=== PATIENT | female | born 1995 | race Hispanic/Latino ===

== ENCOUNTER 2020-01-04 15:40 | Emergency (ER) | payer OTHER, SELFPAY ==
--- NOTE | ~2020-01-04 | US_ITS ---
EXAMINATION: US OB <= 14 weeks fetus DATE: 01/04/2020 16:47 INDICATION: Vaginal bleeding TECHNIQUE: Real-time pelvic ultrasound utilizing both a transvaginal and transabdominal probe was pe rformed. The interpreting radiologist was not present for the study. COMPARISON: 8.9 x 3.6 x 4.7 FINDINGS: The uterus measures 8.9 x 3.6 x 4.7 cm. Endometrial complex measures5 mm in thickness.No intrauterin e gestational sac or fluid. The right ovary measures 3.6 x 2.0 x 2.0 cm. The left ovary measures 3.6 x 2.4 x 1.9 cm. Multiple sub centimeter anechoic cysts/follicles at the periphery of both ovaries which raises possibility of poly cystic ovarian disease. Both arterial and venous waveforms are seen on color Doppler in both ovaries. No abnormal masses identified. There is no free fluid in the pelvis. IMPRESSION: 1. No intrauterine gestational sac or fluid. The setting of a positive beta hCG the differential woul d include early , failed or ectopic . 2. Multiple subcentimeter cysts/follicles at the periphery of both ovaries which could be seen with p olycystic ovarian disease. Reviewed, dictated and finalized at location B. IMPRESSION: 1. No intrauterine gestational sac or fluid. The setting of a positive beta hCG the differential would include early , failed or ectopic pr egnancy. 2. Multiple subcentimeter cysts/follicles at the periphery of both ovaries whic h could be seen with polycystic ovarian disease.
[2020-01-04 16:00] VITALS: BP 119/75; PULSE 69; RESP 18; TEMP 37; O2SAT 100
--- NOTE | 2020-01-04 16:43 | ED.ABDPAIN ---
HPI - Abdominal Pain General Chief Complaint: Vaginal Bleeding Stated Complaint: vb/ Time Seen by Provider: 01/04/20 16:04 Source: patient Mode of arrival: ambulatory Limitations: no limitations History of Present Illness HPI narrative: 24 years old white female complaining of continuation of her menstrual cycle for the last 2 weeks, gradually slowing down. Patient checked her test today and was positive twice. Patient is wondering if she had miscarriage or not. Patient is 0, para 0, 0. Patient denied any smoking, drinking or using drugs. Last menstrual. November 23, 2019. Patient reports slight lower abdominal discomfort like menstrual cramps. Related Data Home Medications Medication Instructions Recorded Confirmed metformin 500 mg PO BID 01/04/20 01/04/20 Allergies Allergy/AdvReac Type Severity Reaction Status Date / Time No Known Allergies Allergy Verified 01/04/20 16:03 Review of Systems Review of Systems: Narrative: CONSTITUTIONAL: Denies fever, chills, or sweats. EYES: Denies visual changes, redness, or discharge. ENT: Denies rhinorrhea, congestion, sore throat, or otalgia. CARDIOVASCULAR: Denies chest pain, palpitations, or edema. RESPIRATORY: Denies cough or dyspnea. GASTROINTESTINAL: Denies abdominal pain, nausea, vomiting, or diarrhea. GENITOURINARY: Denies dysuria or hematuria. SKIN: Denies rash or itching. MUSCULOSKELETAL: Denies back pain, joint pain, or myalgia. NEUROLOGIC: Denies headache, numbness, or weakness. PSYCHIATRIC: Denies anxiety or depression. [facility]LY [facility] Social History Social History (Updated 01/04/20 @ 16:46 by Tito Saenz MD) Second hand tobacco smoke exposure: No Alcohol intake: never Substance use: never Gender identity (if verbalized by the patient): Female Exam Narrative: Exam Narrative: General appearance: Well-developed, well-nourished Skin: Normal color Head: Normocephalic, nontraumatic Eyes: Clear conjunctiva ENT: Oropharynx normal, ears normal, nose normal Neck: Supple, nontender Chest and respiratory: Airway patent, no respiratory distress, no accessory muscle use Heart: Regular rate/rhythm Abdomen: Soft, nontender, no organomegaly, quiet bowel sounds Vascular: Normal peripheral pulses, normal capillary refill. Musculoskeletal: Normal range of motion, nontender back Neurologic: Alert and oriented ?3, PLANT WIRE CHIEF is normal as tested, no gross motor deficit : Speculum Exam - Vagina: normal appearance of the vagina and vaginal bleeding (Trace vaginal bleeding) Bimanual exam- vagina & uterus: normal bimanual exam and normal palpation Bimanual Exam- Adnexa, other: normal adnexae OB/external & speculum: external exam normal and Active bleeding present (Trace red blood in the vaginal pouch) Course Course Emergency Course: Stable Vital Signs Vital signs: Vital Signs Temperature 37.0 C 01/04/20 16:00 Pulse Rate 69 01/04/20 16:00 Respiratory Rate 18 01/04/20 16:00 Blood Pressure 119/75 01/04/20 16:00 Pulse Oximetry 100 01/04/20 16:00 Temperature 37.0 C 01/04/20 16:00 Pulse Rate 69 01/04/20 16:00 Respiratory Rate 18 01/04/20 16:00 Blood Pressure 119/75 01/04/20 16:00 Pulse Oximetry 100 01/04/20 16:00 MDM - Abdominal Pain MDM Narrative Medical decision making narrative: Patient presents with menorrhagia. Positive home test. Miscarriage, ectopic is my concern. Labs, pelvic exam, pelvic ultrasound ordered. Differential Diagnosis Differential diagnosis: Likely other (Miscarriage, ectopic , false test) Lab Data Result diagrams: 01/04/20 16:49 Labs: Lab Results
[2020-01-04 16:58] LABS: Basophils Percent Auto 0.4 % (0.2-1.2); Eosinophils Absolute Auto 0.1 K/mm3 (0-0.3); Eosinophils Percent Auto 1.1 % (0-4.4); Hematocrit 40.9 % (37.0-47.0); Hemoglobin 12.5 g/dL (12.0-15.0); Immature Granulocyte Absolute 0.03 K/mm3 (0.00-0.031); Immature Granulocyte Percent A 0.4 % (0-0.5); Lymphocytes Absolute Auto 1.71 K/mm3 (0.9-3.2); Lymphocytes Percent Auto 20.8 % (18.3-44.2); Mean Corpuscular HGB Conc 30.6 g/dl (32-36); Mean Corpuscular Hemoglobin 23.5 pg (26-34); Mean Platelet Volume 10.2 fl (7.4-10.4); Monocytes Absolute Auto 0.5 K/mm3 (0.1-0.6); Monocytes Percent Auto 6.4 % (2.6-8.5); Neutrophils Absolute Auto 5.8 K/mm3 (1.3-6.7); Neutrophils Percent Auto 70.9 % (45.5-73.1); Platelet Count Result 397 k/mm3 (150-375); Red Blood Count 5.31 M/mm3 (4.2-5.4); Red Cell Distribution Width 15.9 % (11.5-14.5); White Blood Count 8.2 K/mm3 (4.5-10.0)
[2020-01-04 18:32] VITALS: BP 122/70; PULSE 68; RESP 20; O2SAT 99
== END 2020-01-04 18:34 | disposition home or self-care (01) ==
PROVIDERS: Emergency Provider Emergency Medicine; PCP Obstetrics & Gynecology
DX: O20.0 Threatened abortion (principal); Z3A.01 Less than 8 weeks gestation of pregnancy; Z79.84 Long term (current) use of oral hypoglycemic drugs
CPT/HCPCS: 36415; 76801; 84702; 85025; 85461; 99284

== ENCOUNTER 2021-09-14 09:10 | Outpatient (RCR) | payer OTHER, SELFPAY ==
[2021-09-14 10:05] LABS: Beta HCG Quantitative 79.68 mIU/ML
== END 2021-12-13 23:59 | disposition home or self-care (01) ==
LOC: ANHLAB 09:10
PROVIDERS: PCP Obstetrics & Gynecology; Visit Provider Advanced Practice Midwife
DX: Z36.89 Encounter for other specified antenatal screening (principal); O36.0130 Maternal care for anti-D [Rh] antibodies, third trimester, not applicable or unspecified; O20.0 Threatened abortion; Z3A.00 Weeks of gestation of pregnancy not specified
CPT/HCPCS: 36415; 84702; 85461

== ENCOUNTER 2022-03-17 17:56 | Emergency (ER) | payer OTHER, SELFPAY ==
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
[2022-03-17 18:02] VITALS: BP 142/83; PULSE 87; RESP 16; TEMP 37.1; O2SAT 100
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
[2022-03-17] MEDS: ACETAMINOPHEN 500 MG TABLET 1000 MG PO (20:01)
[2022-03-17] MEDS: CYCLOBENZAPRINE HCL 5 MG TABLET PO (20:01)
--- NOTE | 2022-03-18 01:27 | PC.NURSE ---
Pt still on ED board and not present in dept. Removed from tracker by this RN.
== END 2022-03-18 01:28 | disposition home or self-care (01) ==
PROVIDERS: Emergency Provider Emergency Medicine; PCP Obstetrics & Gynecology
DX: S16.1XXA Strain of muscle, fascia and tendon at neck level, initial encounter (principal); Z79.84 Long term (current) use of oral hypoglycemic drugs; V47.5XXA Car driver injured in collision with fixed or stationary object in traffic accident, initial encounter
CPT/HCPCS: 71046; 72072; 72100; 72125; 99284; A9270

== ENCOUNTER 2023-04-24 17:52 | Emergency (ER) | payer MEDICAID, SELFPAY ==
[2023-04-24 17:58] VITALS: BP 121/72; PULSE 111; RESP 16; TEMP 37.6; O2SAT 98
--- NOTE | 2023-04-24 18:28 | ED.GENADULT ---
HPI - General Adult General Chief complaint: Upper Respiratory Infection Stated complaint: fever,sore throat,right ear issue (12 wks Time Seen by Provider: 04/24/23 18:28 Source: patient, RN notes reviewed and old records reviewed Mode of arrival: ambulatory Limitations: no limitations History of Present Illness HPI narrative: 27-year-old female presents to the [facility] with a sore throat, right ear pain and feeling feverish since this morning. Patient reports that she is 12 weeks , Ob is [facility]. States that she was not sure medications that she can take safely during Treatments prior to arrival: none Related Data Home Medications Medication Instructions Recorded Confirmed aspirin 81 mg tablet 81 mg PO DAILY 04/24/23 04/24/23 vitamin-ferrous fumarate 1 tablet PO DAILY 04/24/23 04/24/23 28 mg iron-folic acid 800 mcg tablet ( Tablet) progesterone micronized 100 mg 100 mg PO QAM 04/24/23 04/24/23 capsule (Prometrium) Allergies Allergy/AdvReac Type Severity Reaction Status Date / Time No Known Allergies Allergy Verified 04/24/23 18:19 Review of Systems Review of Systems: All systems reviewed & are unremarkable except as noted in HPI and below Constitutional: Constitutional: Reports as per HPI and Reports fever(s) (Subjective) Eyes: Eyes: Reports no additional eye complaints ENT: Reports as per HPI and Reports sore throat Cardiovascular: Cardiovascular: Reports no additional cardiovascular complaints, Denies chest pain and Denies dyspnea Respiratory: Respiratory: Reports no additional respiratory complaints, Denies chest congestion, Denies cough and Denies dyspnea Gastrointestinal: Gastrointestinal: Reports no additional gastrointestinal complaints, Denies abdominal pain, Denies nausea and Denies vomiting Musculoskeletal: Musculoskeletal: Reports no additional musculoskeletal complaints Integumentary/Breasts: Skin/Breast: Reports system reviewed and no additional complaints, except as docu Neurologic: Reports system reviewed and no additional complaints, except as documented Psychiatric: Psychiatric: Reports no additional psychiatric complaints Allergic/Immunologic: Allergic/Immunologic: Reports no additional allergic/immunologic complaints PMFSH Past Medical History Medical History No pertinent past medical history Surgical History Surgical History No pertinent past surgical history Social History Social History Second hand tobacco smoke exposure: No Alcohol intake: never Substance use: never Gender identity (if verbalized by the patient): Female Comments At the time of my signature, I reviewed and agree with the nursing past medical, surgical, social, and family history. There is no relevant family history pertinent to the patient complaint. Exam Const: General: cooperative, healthy appearing, comfortable, no acute distress, well developed, alert and well nourished Nutritional Appearance: well nourished Orientation/consciousness: patient oriented x3 Limitations: no limitations HENMT: Head: normal to inspection Ears: hearing grossly normal bilaterally, external ears normal, TM's normal bilaterally, EAC's normal, mastoids normal and no periauricular adenopathy Face/Nose/Sinus: Normal external nose present, Normal nares present, Normal nasal mucous membranes and turbinates present, normal facial exam and face symmetric Face and sinus: normal facial exam and face symmetric Mouth: Yes Normal oral and palatal mucosa present, Yes lip normal and Yes moist mucous membranes Throat: posterior oropharynx normal, tonsils normal, uvula midline, postnasal drainage and no uvular edema Eyes: General: appearance normal, both eyes and all related structures Alignment and Pos
== END 2023-04-24 18:44 | disposition home or self-care (01) ==
PROVIDERS: Emergency Provider Nurse Practitioner
DX: J02.9 Acute pharyngitis, unspecified (principal); Z79.82 Long term (current) use of aspirin; Z20.822 Contact with and (suspected) exposure to COVID-19
CPT/HCPCS: 87081; 87426; 87804; 87880; 99213; C9803; G0463

== ENCOUNTER 2024-11-04 12:35 | Emergency (ER) | payer BC, SELFPAY ==
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
[2024-11-04 12:44] VITALS: BP 108/64; PULSE 64; RESP 18; TEMP 36.8; O2SAT 99
[2024-11-04 12:55] LABS: EDUAAPPEAR Cloudy; EDUABILI Negative (Negative); EDUABLOOD 1+ (Negative); EDUACOLOR1 Dark; EDUAGLUCOSE Negative (Negative); EDUAKETONE Negative (Negative); EDUALEUKO 3+ (Negative); EDUANITRATE Negative (Negative); EDUAPH 7.0; EDUAPROTEIN 2+ (Negative); EDUASPGRAVITY 1.020; EDUAUROBILI 0.2
== END 2024-11-04 13:18 | disposition home or self-care (01) ==
PROVIDERS: Emergency Provider Nurse Practitioner
DX: N30.01 Acute cystitis with hematuria (principal)
CPT/HCPCS: 81003; 87086; 99213; G0463